=== PATIENT | female | born 1990 | race Hispanic/Latino ===

== ENCOUNTER 2019-11-15 10:16 | Emergency (ER) | payer MEDICAID ==
[2019-11-15 11:09] LABS: Basophils % (Auto) 0.4 % (0.0-1.8); Eosinophils # (Auto) 0.1 K/mm3 (0.0-0.4); Eosinophils % (Auto) 1.2 % (0.0-4.3); Hematocrit 36.5 % (30.3-42.9); Hemoglobin 12.2 gm/dl (10.1-14.3); Lymphocytes # (Auto) 1.4 K/mm3 (1.2-5.4); Lymphocytes % (Auto) 19.6 % (13.4-35.0); Mean Corpuscular HGB Conc 33 % (30-34); Mean Corpuscular Volume 91 fl (79-97); Monocytes # (Auto) 0.4 K/mm3 (0.0-0.8); Monocytes % (Auto) 5.9 % (0.0-7.3); Platelet Count 225 K/mm3 (140-440); Red Blood Count 4.02 M/mm3 (3.65-5.03); Red Cell Distribution Width 13.8 % (13.2-15.2)
[2019-11-15 11:20] LABS: Alanine Aminotransferase 10 units/L (7-56); Albumin 4.5 g/dL (3.9-5); BUN/Creatinine Ratio 14; Blood Urea Nitrogen 10 mg/dL (7-17); Calcium 9.4 mg/dL (8.4-10.2); Hemolysis Index 3
[2019-11-15 12:58] VITALS: BP 116/46
--- NOTE | 2019-11-15 13:12 | Emergency Department Report ---
ED General Adult HPI - General Chief complaint: Medical Clearance Stated complaint: EGTOPIC Time Seen by Provider: 11/15/19 13:06 Source: patient Mode of arrival: Ambulatory Limitations: No Limitations - History of Present Illness Initial comments: 21-year-old female presents emergency department complaining of a 5 weeks history of right right inguinal pain associated with vaginal bleeding currently under the care of Dr. Saint Denise for an ectopic . She has been treating her pain with Dilaudid 2 mg tablets and had a bout of pain that was not responsive to 3 treatments on yesterday. She was seen by her SAMPLE WASHER this morning and was advised to come to the emergency department for a methotrexate IM injection which is to be accompanied with a CBC CMP and hCG quant. She reports her pain is fairly controlled at this point in time she reports no presyncope, no chest pain, no shortness of breath, no no dizziness, no current nausea or vomiting.'s been advised to follow-up with her SAMPLE WASHER on November 19, 2019 - Related Data Home Medications Medication Instructions Recorded Confirmed Last Taken HYDROcodone/ACETAMINOPHEN [Lortab 1 each PO TID PRN 01/18/14 09/05/15 01/18/14 14:00 10-325 mg Tablet] Previous Rx's Medication Instructions Recorded Last Taken Type Ferrous Sulfate [Feosol 325 MG tab] 325 mg PO TID #120 tablet 01/16/14 01/18/14 14:00 Rx Ibuprofen [Motrin 600 MG tab] 600 mg PO Q6HR PRN #30 tablet 01/16/14 01/18/14 14:00 Rx Docusate Sodium [Colace] 100 mg PO BID PRN #60 capsule 09/05/15 Unknown Rx Ibuprofen [Motrin] 800 mg PO Q8HR PRN #90 tablet 09/05/15 Unknown Rx Oxycodone HCl/Acetaminophen 1 each PO Q6HR PRN #45 tablet 09/05/15 Unknown Rx [Percocet 7.5/325 mg] Allergies Allergy/AdvReac Type Severity Reaction Status Date / Time codeine Allergy Hives Verified 11/15/19 10:24 ED Review of Systems ROS: Stated complaint: EGTOPIC Other details as noted in HPI Comment: All other systems reviewed and negative ED Past Medical Hx - Past Medical History Hx Hypertension: No Hx Diabetes: No Hx Deep Vein Thrombosis: No Hx Liver Disease: No Hx Renal Disease: No Hx Sickle Cell Disease: No Hx Seizures: No Hx Asthma: No Hx HIV: No - Surgical History Additional Surgical History: csection - Social History Smoking Status: Current Every Day Smoker Substance Use Type: None - Medications Home Medications: Home Medications Medication Instructions Recorded Confirmed Last Taken Type Ferrous Sulfate [Feosol 325 MG tab] 325 mg PO TID #120 tablet 01/16/14 09/05/15 01/18/14 14:00 Rx Ibuprofen [Motrin 600 MG tab] 600 mg PO Q6HR PRN #30 tablet 01/16/14 09/05/15 01/18/14 14:00 Rx HYDROcodone/ACETAMINOPHEN [Lortab 1 each PO TID PRN 01/18/14 09/05/15 01/18/14 14:00 History 10-325 mg Tablet] Docusate Sodium [Colace] 100 mg PO BID PRN #60 capsule 09/05/15 Unknown Rx Ibuprofen [Motrin] 800 mg PO Q8HR PRN #90 tablet 09/05/15 Unknown Rx Oxycodone HCl/Acetaminophen 1 each PO Q6HR PRN #45 tablet 09/05/15 Unknown Rx [Percocet 7.5/325 mg] ED Physical Exam - General Limitations: No Limitations General appearance: alert, in no apparent distress - Head Head exam: Present: atraumatic, normocephalic - Eye Eye exam: Present: normal appearance - ENT ENT exam: Present: mucous membranes moist - Neck Neck exam: Present: normal inspection - Respiratory Respiratory exam: Present: normal lung sounds bilaterally. Absent: respiratory distress - Cardiovascular Cardiovascular Exam: Present: regular rate, normal rhythm. Absent: systolic murmur, diastolic murmur, rubs, gallop - GI/Abdominal GI/Abdominal exam: Present: soft, tenderness (Tenderness to the right inguinal region.), normal bowel sounds - Extremities Exam Extremities exam: Present: normal inspection - Back Exam Back exam: Present: normal inspection - Neurological Exam Neurological exam: Present: alert, oriented X3 - Psychiatric Psychiatric exam: Present: normal affect, normal mood - Skin Skin exam: Present: warm, dry, intact, normal color. Absent: rash ED Course Vital Signs 11/15/19 11/15/19 11/15/19 10:24 12:57 12:58 Temperature 98.6 F Pulse Rate 68 57 L Respiratory 20 20 18 Rate Blood Pressure 111/63 Blood Pressure 116/46 [Right] O2 Sat by Pulse 99 100 100 Oximetry - Consultations Consultation #1: 11/15/19 13:08 Discussed the case with SAMPLE WASHER Dr. Saint Denise who confirmed the need of a CBC CMP and hCG quant also a methotrexate injection x1 which is to be followed by a discharge with with a follow-up on this coming Tuesday which should be November 19, 2019. Ectopic was confirmed in office the ultrasound. 11/15/19 13:09 ED Medical Decision Making - Lab Data Result diagrams: 11/15/19 10:45 11/15/19 10:45 - Medical Decision Making 29-year-old female reportedly in the process with an ectopic is currently under the care of SAMPLE WASHER Dr. Elda Denise plan is to give her methotrexate shot have her follow-up with with Dr. Saint Denise on November 18 case was discussed with the SAMPLE WASHER and the patient was there is a full understanding of the treatment and the following expectations. Currently there is no emergent condition her vital signs are stable pain is controlled currently she is utiliz ing Dilaudid 2 mg tablets to help control her pain at home does not need a refill or any adjunct medication per patient Critical care attestation.: If time is entered above; I have spent that time in minutes in the direct care of this critically ill patient, excluding procedure time. ED Disposition Clinical Impression: Ectopic , Encounter for methotrexate monitoring Disposition: - TO HOME OR SELFCARE Is pt being admited?: No Does the pt Need Aspirin: No Condition: Stable Instructions: Methotrexate (Injection) Referrals: KEVIN FARIAS MD [Staff Physician] - 11/19/19
== END 2019-11-15 15:02 | disposition home or self-care (01) ==
LOC: ED 10:16
DX: O00.90 Unspecified ectopic pregnancy without intrauterine pregnancy (principal); Z51.81 Encounter for therapeutic drug level monitoring; F17.200 Nicotine dependence, unspecified, uncomplicated; Z79.1 Long term (current) use of non-steroidal anti-inflammatories (NSAID); Z79.899 Other long term (current) drug therapy; Z98.890 Other specified postprocedural states; Z88.8 Allergy status to other drugs, medicaments and biological substances
CPT/HCPCS: 36415; 80053; 84702; 85025; 96372; 99283; J9260

== ENCOUNTER 2020-12-17 16:48 | Outpatient (CLI) | payer MEDICAID ==
[2020-12-17 17:19] VITALS: BP 114/67
--- NOTE | 2020-12-17 18:37 | Ultrasound Report ---
Biophysical profile Ultrasound HISTORY: well being. TECHNIQUE: Grayscale and color imaging performed. COMPARISON: No recent comparison exam FINDINGS: The fetus received a score of 2 out of 2 for breathing, movement, posture/tone, and OSWALDO. To lisa score was 8 out of 8. Fetus is cephalic in presentation with heart rate of 123 bpm. IMPRESSION: Normal BPP. Signer Name: Abdi Riley MD Signed: 12/17/2020 6:33 PM Workstation Name: [id number]
== END 2020-12-17 18:38 | disposition home or self-care (01) ==
LOC: TRG 16:48 → APU 16:51 → TRG 18:38
PROVIDERS: ATTEND Obstetrics & Gynecology
DX: Z34.93 Encounter for supervision of normal pregnancy, unspecified, third trimester (principal); Z3A.31 31 weeks gestation of pregnancy
CPT/HCPCS: 59025; 76819

== ENCOUNTER 2021-01-08 18:10 | Outpatient (CLI) | payer MEDICAID ==
[2021-01-08 18:29] VITALS: BP 116/73
[2021-01-08] MEDS ORDERED: LACTATED RINGERS 1,000 ML IV ONE (18:45)
[2021-01-08 19:07] LABS: Bilirubin,Urine NEG (Negative); Blood,Urine NEG (Negative); Color,Urine Yellow (Yellow); Mucus,Urine FEW /HPF; Protein,Urine <15 mg/dL mg/dL (Negative); Urobilinogen,Urine < 2.0 mg/dL (<2.0)
== END 2021-01-08 19:48 | disposition home or self-care (01) ==
LOC: TRG 18:10 → APU 18:13 → TRG 19:48
PROVIDERS: ATTEND Obstetrics & Gynecology
DX: Z34.93 Encounter for supervision of normal pregnancy, unspecified, third trimester (principal); Z3A.35 35 weeks gestation of pregnancy
CPT/HCPCS: 36415; 59025; 81001; 84112

== ENCOUNTER 2021-02-06 05:43 | Inpatient (IN) | payer MEDICAID ==
--- NOTE | 2021-02-05 12:43 | History and Physical Report ---
History of Present Illness Date of examination: 02/04/21 Chief complaint: scheduled section History of present illness: Pt is a 31 year old female FLORENCIA 02/12/21 at 39w1d with a history of two prior sections who presents for repeat section. She reports rare contractions, but denies vaginal bleeding and leakage of fluid. She has had care at [facility] since 11 wks complicated by trichomonas treated with negative test of cure on 09/30/20, anemia, limited anatomy survey with normal follow up scan, and two prior sections. She is GBS positive. Past History Past Medical History: GERD Past Surgical History: section (2013, 2015), D&C [employer] TECH[employer]ICIAN History: trichomonas (treated with negative test of cure ) Family/Genetic History: diabetes, hypertension, cancer Social history: no significant social history - Obstetrical History Expected Date of Delivery: 02/12/21 Actual Gestation: 39 Week(s) 0 Day(s) : 5 Para: 2 Hx # Term Pregnancies: 2 Number of Pregnancies: 0 Spontaneous Abortions: 2 Induced : 0 Number of Living Children: 2 Medications and Allergies Allergies Allergy/AdvReac Type Severity Reaction Status Date / Time codeine Allergy Hives Verified 11/15/19 10:24 Home Medications Medication Instructions Recorded Confirmed Last Taken Type Vit-Fe Fumar-FA [ 1 tab PO QDAY 01/08/21 01/08/21 01/07/21 History Vitamin] Active Meds: Active Medications Citric Acid/Sodium Citrate (Bicitra Oral Liqd 30ml) 30 ml PO ONCE ONE Stop: 02/06/21 06:01 Famotidine (Famotidine 20 Mg/2 Ml Inj) 20 mg IV ONCE ONE Stop: 02/06/21 06:01 Lactated Ringer's (Lactated Ringers) 1,000 mls @ 2,250 mls/hr IV PREOP KAYCEE Stop: 02/07/21 05:27 Oxytocin/Sodium Chloride (Pitocin/Ns 30 Unit/500ml) 30 units in 500 mls @ 0 mls/hr IV TITR KAYCEE; Protocol Cefazolin Sodium (Ancef/Sterile Water 2 Gm/20 Ml) 2 gm in 20 mls @ 80 mls/hr IV PREOP NR; Protocol Metoclopramide HCl (Metoclopramide 10 Mg/2 Ml Inj) 10 mg IV ONCE ONE Stop: 02/06/21 06:01 Review of Systems All systems: negative - Physical Exam Breasts: Positive: deferred Abdomen: Positive: soft (obese, gravid ) Uterus: Positive: enlarged (gravid ) Extremities: Positive: normal - Obstetrical FHR: auscultation normal Uterine Contraction Monitor Mode: External Uterine Contraction Pattern: Irregular Uterine Tone Measurement Phase: Resting Results All other labs normal. Assessment and Plan A: IUP at 39w1d Previous section x 2 Obesity GERD Trichomonas treated with negative test of cure on 09/30/20 Anemia GBS positive status P: Proceed with repeat section and other indicated procedures.
[~2021-02-06 05:43] MED LIST: LACTATED RINGERS 1,000 ML IV SCH; OXYTOCIN DRIP 30 UNITS/500 ML BAG IV SCH
[2021-02-06] MEDS ORDERED: ceFAZolin/Water 2 GM/20 ML 2 GM/20 ML SYRINGE IV NR (06:00)
[2021-02-06] MEDS ORDERED: ceFAZolin/Water 2 GM/20 ML 0 GM/0 ML SYRINGE IV ONE (06:47)
[2021-02-06 06:58] LABS: Basophils # (Auto) 0.1 K/mm3 (0.0-0.1); Basophils % (Auto) 0.6 % (0.0-1.8); Eosinophils # (Auto) 0.1 K/mm3 (0.0-0.4); Eosinophils % (Auto) 1.6 % (0.0-4.3); Hematocrit 33.3 % (30.3-42.9); Hemoglobin 11.8 gm/dl (10.1-14.3); Lymphocytes # (Auto) 1.8 K/mm3 (1.2-5.4); Lymphocytes % (Auto) 20.4 % (13.4-35.0); Mean Corpuscular HGB Conc 36 % (30-34); Mean Corpuscular Volume 95 fl (79-97); Monocytes # (Auto) 0.6 K/mm3 (0.0-0.8); Monocytes % (Auto) 6.8 % (0.0-7.3); Platelet Count 179 K/mm3 (140-440); Red Blood Count 3.52 M/mm3 (3.65-5.03); Red Cell Distribution Width 12.8 % (13.2-15.2)
[2021-02-06] MEDS ORDERED: METOCLOPRAMIDE 10 MG/2 ML INJ IV ONE (07:00)
[2021-02-06] MEDS ORDERED: FAMOTIDINE 20 MG/2 ML INJ IV ONE (07:00)
[2021-02-06] MEDS ORDERED: BICITRA ORAL LIQD 30ML PO ONE (07:00)
--- NOTE | 2021-02-06 07:10 | Anesthesia Day of Surgery ---
Anesthesia Day of Surgery - Day of Surgery Patient Examined: Yes Patient H&P Reviewed: Yes Patient is NPO: Yes Beta Blockers: No Cardiac Clearance: No Pulmonary Clearance: No Christopher's Test: N/A
--- NOTE | 2021-02-06 07:11 | Anesthesia Consultation ---
Anesthesia Consult and Med Hx Date of service: 02/06/21 - Airway Anesthetic Teeth Evaluation: Good ROM Head & Neck: Adequate Mental/Hyoid Distance: Adequate Mallampati Class: Class II Intubation Access Assessment: Probably Good - Pulmonary Exam CTA: Yes - Cardiac Exam Cardiac Exam: RRR - Pre-Operative Health Status ASA Pre-Surgery Classification: ASA2 Proposed Anesthetic Plan: Spinal - Pulmonary Hx Smoking: No Hx Asthma: No Hx Respiratory Symptoms: No SOB: No COPD: No Home Oxygen Therapy: No Hx Pneumonia: No Hx Sleep Apnea: No - Cardiovascular System Hx Hypertension: No Hx Coronary Artery Disease: No Hx Heart Attack/AMI: No Hx Angina: No Hx Percutaneous Transluminal Coronary Angioplasty (PTCA): No Hx Cardia Arrhythmia: No Hx Pacemaker: No Hx Internal Defibrillator: No Hx Valvular Heart Disease: No Hx Heart Murmur: No Hx Peripheral Vascular Disease: No - Central Nervous System Hx Neuromuscular Disorder: No Hx Seizures: No CVA: No Hx Back Pain: Yes Hx Psychiatric Problems: No - Gastrointestinal Hx Ulcer: No Hx Gastroesophageal Reflux Disease: No - Endocrine Hx Renal Disease: No Hx End Stage Renal Disease: No Hx Cirrhosis: No Hx Liver Disease: No Hx Insulin Dependent Diabetes: No Hx Non-Insulin Dependent Diabetes: No Hx Thyroid Disease: No Hx Hypothyroidism: No Hx Hyperthyroidism: No - Hematic Hx Anemia: No Hx Sickle Cell Disease: No - Other Systems Hx Alcohol Use: No Hx Substance Use: No Hx Cancer: No Hx Obesity: Yes
[2021-02-06] MEDS ORDERED: ONDANSETRON 4 MG/2 ML INJ ONE ×2 (07:25)
[2021-02-06] MEDS ORDERED: ONDANSETRON 4 MG/2 ML INJ IV PRN (07:30)
[2021-02-06] MEDS ORDERED: HYDROmorphone 1 MG/1 ML INJ IV PRN (07:30)
[2021-02-06] MEDS ORDERED: NALOXONE 0.4 MG/1 ML INJ IV PRN ×2 (07:30→14:31)
[2021-02-06] MEDS ORDERED: miSOPROStol 200 MCG TAB PR ONE (08:00)
[2021-02-06] MEDS ORDERED: METHYLERGONOVINE MALEATE 0.2 MG/ML VIAL IM ONE ×2 (08:03→20:11)
[2021-02-06] MEDS ORDERED: miSOPROStol 200 MCG TAB ONE (08:03)
[2021-02-06] MEDS ORDERED: PHENYLEPHRINE 10 MG/1 ML INJ SDV ONE (08:18)
[2021-02-06] MEDS ORDERED: ceFAZolin/STERILE WATER 2 GM/20 ML SYRINGE IV ONE (08:32)
[2021-02-06] MEDS ORDERED: WATER FOR IRRIG STERILE 1,500 ML BOTTLE IR ONE (08:40)
[2021-02-06] MEDS ORDERED: SODIUM CHLORIDE 0.9% IRR 1,500 ML BOTTLE IR ONE (08:40)
[2021-02-06] MEDS ORDERED: OXYTOCIN 10 UNIT/1 ML INJ ONE (09:04)
[2021-02-06] MEDS ORDERED: SODIUM CHLORIDE 0.9% 500 ML 500 ML ONE (09:05)
[2021-02-06] MEDS ORDERED: KETOROLAC 30 MG/1 ML INJ ONE (09:23)
[2021-02-06] MEDS ORDERED: dexAMETHasone 20 MG/5 ML VIAL ONE (09:25)
[2021-02-06] MEDS ORDERED: BUPIVACAINE/PF (0.25%) 2.5 MG/ML 30 ML VIAL INFILTRATI ONE ×2 (09:26)
--- NOTE | 2021-02-06 10:01 | Procedure Note ---
OB Delivery Note - Delivery Date of Delivery: 02/06/21 Surgeon: DAVID NICKERSON Estimated blood loss: other (305 mL) - Section Preop diagnosis: repeat Postop diagnosis: same section procedure: section, repeat low transverse Disposition: PACU Narrative: Please see operative note - A at 1 minute: 8 at 5 minutes: 9 Infant Gender: Male (3777g (8lb 5oz) @ 0901 am)
--- NOTE | 2021-02-06 10:07 | Operative Report ---
Operative Report Operative Report: Date of procedure: February 06, 2021 Preoperative diagnosis: 1) IUP at 39w1d 2) Previous x 2 3) Obesity Postoperative diagnosis: Same Procedure: Repeat low transverse section Surgeon: Madelyn Baxter M.D. Anesthesia: Regional Findings: 1) Viable male , Apgars 8 and 9, weight 3777 g, (8 lb 5 oz) in cephalic presentation. 2) Normal-appearing uterus ovaries and tubes Estimated blood loss: 305 mL by QBL IV fluids: 1000 mL Urine output: 200 mL, clear at the end of the procedure Drains: Zhou to gravity Specimens: None Complications:None. Counts correct x 3 Disposition: Stable to PACU Indication for procedure: Pt is a 31 year old at 39w1d with a h/o two prior sections presents for repeat section. Operation in detail: After the risks, benefits, alternatives and complications were explained to the patient she gave informed consent for the procedure. She was subsequently taken to the operating room where regional anesthesia was noted to be adequate. She was placed in the dorsal supine position with leftward tilt and prepped and draped in a normal sterile fashion. heart tones were noted prior to incision. A timeout was performed. A Pfannenstiel skin incision was made with the knife and carried down to the layer of the fascia with the Bovie. The fascia was incised in the midline and the fascial incision was extended bilaterally with the Bovie. The fascial incision was then stretched. The rectus muscles were then in the midline and partially transected for adequate visualization. The peritoneum was then entered bluntly. The peritoneal incision was extended with good visualization of the bladder. The peritoneal incision was then stretched. An Jose retractor was placed. The bladder blade was then placed. The vesicouterine peritoneum was grasped with smooth pick ups and incised with Metzenbaum scissors. A bladder flap was then created digitally and the bladder blade was replaced. A transverse incision was made in the lower uterine segment with a knife and extended bilaterally with the bandage scissors. Amniotomy was performed with egress of clear fluid. head delivered with ease, followed by shoulders and body. bulb suctioned at delivery. Cord clamped and cut. handed to NICU staff in attendance. Cord blood was collected. The placenta was then delivered manually. The uterus was then exteriorized and cleared of all clots and debris. The hysterotomy was then reapproximated with 0 Monocryl in a running locked fashion. A second layer of the same suture was used in imbricating fashion. The hysterotomy was inspected and hemostasis was noted. The gutters were irrigated and cleared of all clots and debris. The hysterotomy was again inspected and noted to be hemostatic. The uterus was placed back into the peritoneal cavity. Surgicel was placed over the hysterotomy. The Jose retractor was removed. The peritoneum was reapproximated with 0 Monocryl in a running fashion incorporating the rectus muscles. Surgicel was placed over the rectus muscles. The fascia was reapproximated with 0 Vicryl in a running fashion. The subcutaneous tissue was reapproximated with 3-0 Vicryl in a running fashion. The skin was reapproximated with 3-0 Monocryl in a subcuticular fashion. The incision was then covered with steri strips and a pressure dressing. The procedure was then ended. The patient tolerated the procedure well and was taken to the PACU in stable condition. All instrument, lap, and needle counts were correct 3.
[2021-02-06] MEDS ORDERED: WITCH HAZEL/ GLYCERIN PAD TP PRN (14:31)
[2021-02-06] MEDS ORDERED: OXYTOCIN DRIP 30 UNITS/500 ML BAG IV SCH (14:31)
[2021-02-06] MEDS ORDERED: SIMETHICONE 80 MG CHEW TAB PO PRN (14:31)
[2021-02-06] MEDS ORDERED: MORPHINE 2 MG/1 ML INJ IV PRN (14:31)
[2021-02-06] MEDS ORDERED: LANOLIN/ZINC/DIMETHICONE (LANSINOH) 7 GM TP PRN (14:31)
[2021-02-06] MEDS ORDERED: D5W/LACTATED RINGERS 1,000 ML IV SCH (14:31)
[2021-02-06] MEDS ORDERED: MAGNESIUM HYDROXIDE (MOM) ORAL LIQD UDC PO PRN (14:31)
[2021-02-06] MEDS: KETOROLAC 30 MG/1 ML INJ IV SCH ×2 (15:01→21:31)
[2021-02-06] MEDS: ceFAZolin/NS 1 GM/50 ML 1 GM/50 ML BAG IV SCH ×2 (15:03→22:05)
--- NOTE | 2021-02-06 15:27 | Progress Note ---
Spinal Anesthesia Block - Spinal Anesthesia Block Start Time: 07:50 Stop Time: 08:11 Performed by:: RSOEANNE MONTERO Procedure: Patient IDed, H&P reviewed, all questions and concerns were answered, and consent was signed. Timeout was performed at bedside. Patient in sitting position. Sterile prep and drape was performed. [3] ml of 1% lidocaine skin wheal at L[3]- L [4]. Needle introducer advanced. 25 gauge spinal needle advanced. Clear, free flowing CSF. negative blood, negative paresthesia. Spinal dose given. All needles removed. Patient tolerated procedure.
--- NOTE | 2021-02-06 15:29 | Progress Note ---
Regional Anesthesia Block - Regional Anesthesia Block Start Time: 10:15 Stop Time: 10:18 Performed By:: ROSEANNE MONTERO Procedure: Patient consented for TAP block for post surgical pain management. Patient identified, monitors placed, and time out performed. TAP identified bilaterally via ultrasound. Skin prepped bilaterally with [chlorhexidine] and [22g stimuplex] needle advanced to the TAP. [Marcaine 0.25% 30ml] injected under ultrasound guidance on the [left] side. [Marcaine 0.20% 35ml] injected under ultrasound guidance on the [right] side. Negative aspiration every 5mL, No change in heart rate or rhythm. Patient tolerated the procedure well. No apparent complications seen.
--- NOTE | 2021-02-06 20:34 | Post Anesthesia Evaluation ---
- Post Anesthesia Evaluation Patient Participated: Yes Airway Patent: Yes Stable Respiratory Function: Yes Nausea/Vomiting: No Temp > 96.8F: Yes Pain Manageable: Yes Adequeate Hydration: Yes Anesthesia Complications: No Block Receding Appropriately: Yes Patient on Ventilator: No
[2021-02-06] MEDS: MORPHINE 4 MG/1 ML INJ IV PRN (23:47)
[2021-02-07 02:57] LABS: Hematocrit 33.4 % (30.3-42.9); Hemoglobin 11.4 gm/dl (10.1-14.3)
[2021-02-07] MEDS ORDERED: MEASLES, MUMPS & RUBELLA 12,500 UNIT/0.5 ML VACCINE SUB-Q ONE (06:00)
[2021-02-07] MEDS ORDERED: TETANUS,DIPH,PERTUSS(ACELL) VACCINE 0.5 ML SYRINGE IM ONE (06:00)
[2021-02-07] MEDS: MORPHINE 4 MG/1 ML INJ IV PRN (09:51)
[2021-02-07] MEDS: KETOROLAC 30 MG/1 ML INJ IV SCH (09:59)
[2021-02-07] MEDS: oxyCODONE /ACETAMINOPHEN 5-325MG TAB PO PRN ×2 (13:22→17:51)
--- NOTE | 2021-02-07 14:19 | Progress Note ---
Assessment and Plan A: POD#1 s/p repeat section at term P: Routine post op advances Subjective - Subjective Date of service: 02/07/21 Principal diagnosis: s/p repeat section, obesity Interval history: No overnight events. Patient reports: appetite normal, voiding normally, pain well controlled, ambulating normally : doing well Objective - Vital Signs Latest vital signs: Vital Signs Temp Pulse Resp BP BP Pulse Ox Pulse Ox 02/07/21 13:08 97.3 F L 72 16 111/78 100 02/07/21 08:25 98.1 F 67 18 107/68 98 02/07/21 08:00 98 02/07/21 04:15 98.6 F 68 20 122/68 100 02/06/21 23:47 14 02/06/21 23:16 98.2 F 72 20 123/77 98 02/06/21 21:31 12 02/06/21 20:20 98.2 F 74 20 118/62 100 02/06/21 20:15 98 02/06/21 16:21 97.5 F L 66 18 98 Intake and Output 02/06/21 02/07/21 02/07/21 22:59 06:59 14:59 Intake Total 50 240 Output Total 1900 1100 Balance -1850 -860 Intake: IV 50 ANCEF/NS 1 GM/50 ML 1 gm 50 In 50 ml @ 100 mls/hr IV Q8H [facility] Rx#:[id number] Oral 240 Output: Urine 1900 1100 Indwelling Catheter 1900 Void 1100 Other: Total, Intake Amount 240 Total, Output Amount 400 500 # Voids Void 2 - Exam Breasts: Present: deferred Abdomen: Present: soft (obese ), distention (mild ) Uterus: Present: fundal height at umbilicus Extremities: Present: edema (trace ) Incision: Present: dressed
[2021-02-07] MEDS: IBUPROFEN 800 MG TAB PO PRN (15:32)
[2021-02-08] MEDS: oxyCODONE /ACETAMINOPHEN 5-325MG TAB PO PRN ×2 (02:52→13:29)
[2021-02-08] MEDS: LACTULOSE 20 GM/30 ML ORAL LIQD PO SCH ×2 (06:16→16:19)
[2021-02-08] MEDS: IBUPROFEN 800 MG TAB PO PRN ×2 (09:36→16:19)
--- NOTE | 2021-02-08 14:55 | Progress Note ---
Assessment and Plan A: POD#2 s/p repeat section at term P: Routine post op advances Discharge today with follow up in 2 wks for incision check Subjective - Subjective Date of service: 02/08/21 Principal diagnosis: s/p repeat section, obesity Interval history: No overnight events. Pt desires to go home today. Patient reports: appetite normal, voiding normally, pain well controlled, flatus , ambulating normally, no bowel movement : doing well Objective - Vital Signs Latest vital signs: Vital Signs Temp Pulse Resp BP BP Pulse Ox Pulse Ox 02/08/21 08:43 97.7 F 71 18 105/78 98 02/08/21 06:14 97 02/08/21 04:12 98 02/08/21 01:35 98 02/08/21 00:17 98 02/08/21 00:15 98.6 F 58 L 20 118/72 100 02/07/21 21:30 97 02/07/21 20:10 97 02/07/21 17:28 97.3 F L 79 16 90/43 97 Intake and Output 02/07/21 02/08/21 02/08/21 22:59 06:59 14:59 Intake Total 240 240 Balance 240 240 Intake: Oral 240 240 Other: Total, Intake Amount 240 240 # Voids Void 1 1 1 - Exam Breasts: Present: deferred Abdomen: Present: soft (obese ) Uterus: Present: fundal height at umbilicus Extremities: Present: edema (+1) Incision: Present: intact (with steristrips )
--- NOTE | 2021-02-08 15:55 | Discharge Summary ---
Providers - Providers Date of Admission: 02/06/21 05:43 Date of discharge: 02/08/21 Attending physician: KEVIN FARIAS 02/06/21 14:31 Consult to Special Events Manager [CONS] Routine Reason For Exam: Primary care physician: DAVID NICKERSON Hospitalization Reason for admission: section Delivery: Procedure: section, repeat low transverse Procedure details: Please see operative report Incision: normal, intact Other procedures: none complications: none Discharge diagnosis: IUP at term delivered baby: male Hospital course: Pt was admitted for repeat section and went on to have a repeat section which she tolerated well. Her postoperative course was uncomplicated and she met to discharge criteria on POD#2. She will follow up in 2 wks for an incision check. Condition at discharge: Stable Disposition: 01 HOME / SELF CARE / HOMELESS - Discharge Diagnoses (1) S/P section Status: Acute (2) Obesity (BMI 35.0-39.9 without comorbidity) Status: Acute (3) Previous delivery affecting Status: Acute Plan - Discharge Medications Prescriptions: Ibuprofen [Motrin] 800 mg PO Q8HR PRN #30 tablet PRN Reason: Pain, Moderate (4-6) oxyCODONE /ACETAMINOPHEN [Percocet 5/325] 1 tab PO Q6HR PRN #30 tablet PRN Reason: Pain - Provider Discharge Summary Activity: routine, no sex for 6 weeks, no heavy lifting 4 weeks, no strenuous exercise Diet: routine Instructions: routine Additional instructions: [] Smoking cessation referral if applicable(refer to patient education folder for contact #) [] Refer to [facility] Booklet Call your doctor immediately for: * Fever > 100.5 * Heavy vaginal bleeding ( >1 pad per hour) * Severe persistent headache * Shortness of breath * Reddened, hot, painful area to leg or breast * Drainage or odor from incision. * Keep incision clean and dry at all times and follow doctor's instructions regarding bathing/showering - Follow up plan Follow up: DAVID NICKERSON MD [Primary Care Provider] - 14 Days (Please call to schedule an appt)
[2021-02-08 18:31] VITALS: BP 110/73
== END 2021-02-08 19:15 | disposition home or self-care (01) | DRG 766 ==
LOC: APU 05:43 → OB 11:45
PROVIDERS: ADMIT Obstetrics & Gynecology; ATTEND Obstetrics & Gynecology
PROC: 10D00Z1 Extraction of Products of Conception, Low, Open Approach (ICD-10-PCS; principal; 2021-02-06)
PROC: 3E0T3BZ Introduction of Anesthetic Agent into Peripheral Nerves and Plexi, Percutaneous Approach (ICD-10-PCS; 2021-02-06)
PROC: 3E0234Z Introduction of Serum, Toxoid and Vaccine into Muscle, Percutaneous Approach (ICD-10-PCS; 2021-02-07)
DX: O34.211 Maternal care for low transverse scar from previous cesarean delivery (principal); Z37.0 Single live birth; O99.214 Obesity complicating childbirth; O99.62 Diseases of the digestive system complicating childbirth; O99.02 Anemia complicating childbirth; D64.9 Anemia, unspecified; O99.824 Streptococcus B carrier state complicating childbirth; Z3A.39 39 weeks gestation of pregnancy; K21.9 Gastro-esophageal reflux disease without esophagitis; Z20.822 Contact with and (suspected) exposure to COVID-19; Z23 Encounter for immunization
CPT/HCPCS: 36415; 85014; 85018; 85025; 86850; 86900; 86901; 88307; G0378; A6250; C1765; J0690; J1100; J1885; J2210; J2270; J2370; J2405; J2590; J2765; J3490; J7040; J7120; U0003

== ENCOUNTER 2022-02-25 09:25 | Inpatient (IN) | payer MEDICAID ==
[2022-02-25] MEDS ORDERED: FAMOTIDINE 20 MG/2 ML INJ IV ONE (09:41)
[2022-02-25] MEDS ORDERED: METOCLOPRAMIDE 10 MG/2 ML INJ IV ONE (09:41)
[2022-02-25] MEDS ORDERED: BICITRA ORAL LIQD 30ML PO ONE (09:41)
[2022-02-25] MEDS ORDERED: LACTATED RINGERS 1,000 ML IV SCH (09:45)
--- NOTE | 2022-02-25 09:47 | History and Physical Report ---
History of Present Illness Date of examination: 02/24/02 Date of admission: 02/25/22 09:25 Chief complaint: scheduled section History of present illness: Pt is a 32 year old female FLORENCIA 03/03/22 at 39w1d who presents for scheduled section secondary to previous x 3. She reports irregular contractions, and denies vaginal bleeding or leakage of fluid. She has had care at [facility] since 16 wks complicated by GERD, three prior sections, choroid plexus cyst, and undesired fertility. She is GBS positive. Past History Past Medical History: GERD Past Surgical History: section (x 3), D&C Family/Genetic History: diabetes, hypertension, cancer Social history: no significant social history - Obstetrical History Expected Date of Delivery: 03/03/22 Actual Gestation: 39 Week(s) 1 Day(s) : 6 Para: 3 Hx # Term Pregnancies: 3 Number of Pregnancies: 0 Spontaneous Abortions: 2 Induced : 0 Number of Living Children: 3 Medications and Allergies Allergies Allergy/AdvReac Type Severity Reaction Status Date / Time codeine Allergy Hives Verified 11/15/19 10:24 Home Medications Medication Instructions Recorded Confirmed Last Taken Type Vit-Fe Fumar-FA [ 1 tab PO QDAY 01/08/21 01/08/21 01/07/21 History Vitamin] Ibuprofen [Motrin] 800 mg PO Q8HR PRN #30 tablet 02/07/21 Unknown Rx oxyCODONE /ACETAMINOPHEN [Percocet 1 tab PO Q6HR PRN #30 tablet 02/07/21 Unknown Rx 5/325] Review of Systems All systems: negative - Physical Exam Breasts: Positive: deferred Abdomen: Positive: soft (gravid ) Uterus: Positive: enlarged (gravid ) Extremities: Positive: normal - Obstetrical Uterine Contraction Monitor Mode: External Uterine Contraction Pattern: Irregular Results All other labs normal. Assessment and Plan A: IUP at 39w1d Previous x 3 GERD Choroid plexus cyst GBS positive status Undesired fertility P: Proceed with repeat section, bilateral tubal ligation and other indicated procedures
[2022-02-25] MEDS ORDERED: OXYTOCIN DRIP 30 UNITS/500 ML BAG IV SCH ×2 (10:00→17:03)
[2022-02-25] MEDS ORDERED: ceFAZolin/Water 2 GM/20 ML 2 GM/20 ML SYRINGE IV NR (10:00)
[2022-02-25 12:18] LABS: Basophils % (Auto) 0.5 % (0.0-1.8); Eosinophils # (Auto) 0.1 K/mm3 (0.0-0.4); Hematocrit 32.9 % (30.3-42.9); Hemoglobin 11.3 gm/dl (10.1-14.3); Lymphocytes # (Auto) 1.6 K/mm3 (1.2-5.4); Lymphocytes % (Auto) 19.5 % (13.4-35.0); Mean Corpuscular HGB Conc 34 % (30-34); Mean Corpuscular Volume 95 fl (79-97); Monocytes # (Auto) 0.4 K/mm3 (0.0-0.8); Platelet Count 155 K/mm3 (140-440); Red Blood Count 3.47 M/mm3 (3.65-5.03); Red Cell Distribution Width 13.2 % (13.2-15.2)
--- NOTE | 2022-02-25 14:15 | Procedure Note ---
OB Delivery Note - Delivery Date of Delivery: 02/25/22 Surgeon: DAVID NICKERSON Estimated blood loss: 1000cc - Section Preop diagnosis: repeat , desires sterilization Postop diagnosis: same section procedure: section, repeat low transverse, bilateral tubal ligation Disposition: PACU Narrative: Please see operative report - A at 1 minute: 8 at 5 minutes: 9 Infant Gender: Female (3370g (7lb 7oz) @ 1310 pm)
--- NOTE | 2022-02-25 14:22 | Operative Report ---
Operative Report Operative Report: Date of procedure: February 25, 2022 Preoperative diagnosis: 1)IUP at 39w1d 2) Previous x 3 3) Obesity 4) Undesired Fertility Postoperative diagnosis: Same Procedure: 1) Repeat low transverse section 2) Bilateral tubal ligation via modified [place] method Surgeon: Madelyn Baxter M.D. Anesthesia: Regional Findings: 1) Viable female , Apgars 8 and 9, weight 3370, (7lb 7oz) in cephalic presentation. Thick meconium. 2) Normal appearing uterus, ovaries and tubes 3) Left peritoneal defect repaired with 2-0 chromic in a running fashion Estimated blood loss: 1000 mL Urine output: 100 mL, clear at the end of the procedure Drains: Zhou to gravity Specimens: Tubal segments to pathology Complications: Counts correct x 3 Disposition: Stable to PACU Indication for procedure: Pt is a 32 year old at 39w1d with three prior sections and undesired fertility presents for scheduled section and tubal ligation. Operation in Detail: After the risks, benefits, alternatives and complications were explained to the patient she gave informed consent for the procedure. She was subsequently taken to the operating room where regional anesthesia was noted to be adequate. SCDs were noted to be in place and functioning. She was then placed in the dorsal supine position with leftward tilt and prepped and draped in a normal sterile fashion. heart tones were noted prior to incision. A timeout was performed. A Pfannenstiel skin incision was made with the knife and carried down to the layer of the fascia with the Bovie. The fascia was incised in the midline and the fascial incision was extended bilaterally with the Bovie. The fascial incision was then stretched. The rectus muscles were then in the midline and partially transected for adequate visualization. The peritoneum was then entered sharply between two Francisca clamps. The peritoneal incision was extended with good visualization of the bladder. The peritoneal incision was then stretched. An Jose retractor was placed. The bladder blade was placed. The vesicouterine peritoneum was grasped with smooth pick ups and incised with Metzenbaum scissors. A transverse incision was made with a knife in the lower uterine segment. The hysterotomy was stretched. The head was delivered without difficulty followed by delivery of the shoulders and body. was bulb suctioned at delivery. The cord was clamped and cut and the was handed to NICU staff in attendance. Cord blood was collected. The placenta was then delivered manually. The uterus was exteriorized and cleared of all clots and debris. The hysterotomy was then reapproximated with 0 Monocryl in a running locked fashion. A defect in the peritoneum on the left side of the uterus was noted, and reapproximated with two figure of eights of 2-0 chromic. The hysterotomy was inspected and hemos tasis was noted. Attention was then turned to the tubal ligation. The left tube was identified, grasped with a kam and followed out to the fimbriae. The tube was suture ligated via a modified [place] merhod using 0 plain suture. The intervening tubal segment was sent to pathology. The right tube was then identified, followed out to the fimbriae and suture ligated via a modified [place] method using 0 plain suture. Hemostasis was noted. Surgicel was placed over the tubal ostia bilaterally. The gutters were irrigated and cleared of all clots and debris. The hysterotomy was again inspected and noted to be hemostatic. Surgicel was placed over the hysterotomy. The uterus was returned to the peritoneal cavity. The Jose retractor was removed. The peritoneum was reapproximated with 0 Monocryl in a running fashion incorporating the rectus muscles. Surgicel was placed over the rectus muscles. The fascia was reapproximated with 0-Vicryl in a running fashion. The subcutaneous tissue was reapproximated with 3-0 Vicryl in a running fashion. The skin was reapproximated with 3-0 Monocryl in a subcuticular fashion. The incision was then covered with a pressure dressing. The procedure was then ended. The patient tolerated the procedure well and was taken to the PACU in stable condition. All instrument, lap, and needle counts were correct 3.
[2022-02-25] MEDS ORDERED: SIMETHICONE 80 MG CHEW TAB PO PRN (17:03)
[2022-02-25] MEDS ORDERED: WITCH HAZEL/ GLYCERIN PAD TP PRN (17:03)
[2022-02-25] MEDS ORDERED: ONDANSETRON 4 MG/2 ML INJ IV PRN (17:03)
[2022-02-25] MEDS ORDERED: ACETAMINOPHEN 325 MG TAB PO PRN (17:03)
[2022-02-25] MEDS ORDERED: LANOLIN/ZINC/DIMETHICONE (LANSINOH) 7 GM TP PRN (17:03)
[2022-02-25] MEDS ORDERED: NALOXONE 0.4 MG/1 ML INJ IV PRN (17:03)
[2022-02-25] MEDS ORDERED: HYDROmorphone 0.5 MG/0.5 ML INJ IV PRN (17:03)
[2022-02-25] MEDS: KETOROLAC 30 MG/1 ML INJ IV SCH (20:07)
[2022-02-25] MEDS: ceFAZolin/NS 1 GM/50 ML 1 GM/50 ML BAG IV SCH (20:10)
[2022-02-25] MEDS ORDERED: LACTATED RINGERS 1,000 ML ONE (20:11)
[2022-02-25] MEDS: HYDROmorphone 0.5 MG/0.5 ML INJ IV PRN (21:11)
[2022-02-26] MEDS: HYDROmorphone 0.5 MG/0.5 ML INJ IV PRN (00:50)
[2022-02-26] MEDS: KETOROLAC 30 MG/1 ML INJ IV SCH ×2 (02:51→11:59)
[2022-02-26] MEDS: ceFAZolin/NS 1 GM/50 ML 1 GM/50 ML BAG IV SCH (02:53)
[2022-02-26 04:17] LABS: Hematocrit 26.4 % (30.3-42.9); Hemoglobin 9.3 gm/dl (10.1-14.3)
[2022-02-26] MEDS: oxyCODONE /ACETAMINOPHEN 5-325MG TAB PO PRN ×4 (05:24→18:15)
[2022-02-26] MEDS ORDERED: TETANUS,DIPH,PERTUSS(ACELL) VACCINE 0.5 ML SYRINGE IM ONE (06:00)
[2022-02-26] MEDS: FERROUS SULFATE 325 MG TAB PO SCH (09:29)
--- NOTE | 2022-02-26 13:45 | Progress Note ---
Assessment and Plan A: POD#1 s/p repeat section with bilateral tubal ligation Anemia, asymptomatic Obesity P: Routine postop care Subjective - Subjective Date of service: 02/26/22 Principal diagnosis: s/p repeat at term Interval history: Pt without unusual complaints today. Patient reports: appetite normal, voiding normally, pain well controlled, flatus, ambulating normally, no bowel movement [place]: doing well Objective - Vital Signs Latest vital signs: Vital Signs Temp Pulse Resp BP BP Pulse Ox Pulse Ox 02/26/22 11:37 98.2 F 72 18 111/71 96 02/26/22 08:15 98 02/26/22 08:10 97.9 F 65 16 102/74 98 02/26/22 04:13 98.0 F 60 20 101/66 97 02/26/22 00:44 98.3 F 71 20 104/68 96 02/25/22 20:00 96 02/25/22 19:58 75 20 112/65 100 02/25/22 16:31 78 16 107/63 100 02/25/22 16:15 100 Intake and Output 02/25/22 02/26/22 02/26/22 22:59 06:59 14:59 Intake Total 295 120 360 Output Total 600 1000 Balance -305 -880 360 Intake: IV 175 ANCEF/NS 1 GM/50 ML 1 gm 50 In 50 ml @ 100 mls/hr IV Q8H [facility] Rx#:[id number] Left Hand 125 Oral 120 120 360 Output: Urine 600 1000 Indwelling Catheter 600 1000 Other: Total, Intake Amount 120 120 360 Total, Output Amount 600 1000 # Voids Void 1 1 - Exam Breasts: Present: deferred Abdomen: Present: soft (obese ) Extremities: Present: edema (trace) Incision: Present: dressed - Labs Labs: Abnormal lab results 02/26/22 Range/Units 03:53 Hgb 9.3 L (10.1-14.3) gm/dl Hct 26.4 L D (30.3-42.9) %
[2022-02-26] MEDS: LACTULOSE 20 GM/30 ML ORAL LIQD PO SCH (14:02)
[2022-02-26] MEDS ORDERED: MEASLES, MUMPS & RUBELLA 12,500 UNIT/0.5 ML VACCINE SUB-Q ONE (14:24)
[2022-02-26] MEDS: IBUPROFEN 800 MG TAB PO PRN (20:33)
[2022-02-27] MEDS: oxyCODONE /ACETAMINOPHEN 5-325MG TAB PO PRN ×3 (00:22→14:47)
[2022-02-27] MEDS: LACTULOSE 20 GM/30 ML ORAL LIQD PO SCH (03:06)
[2022-02-27] MEDS: IBUPROFEN 800 MG TAB PO PRN (03:10)
[2022-02-27] MEDS: FERROUS SULFATE 325 MG TAB PO SCH (09:26)
[2022-02-27 09:32] VITALS: BP 111/69
--- NOTE | 2022-02-27 14:40 | Progress Note ---
Assessment and Plan A: POD#2 s/p repeat section with bilateral tubal ligation Anemia, asymptomatic Obesity P: Routine postop care Discharge home Subjective - Subjective Date of service: 02/27/22 Principal diagnosis: s/p repeat at term Interval history: Pt without unusual complaints today. +flatus. + bowel movement. Voiding without difficulty. Decreasing lochia. Pt would like to go home today. Patient reports: appetite normal, voiding normally, pain well controlled, flatus, bowel movement, ambulating normally [place]: doing well Objective - Vital Signs Latest vital signs: Vital Signs Temp Pulse Resp BP BP Pulse Ox Pulse Ox 02/27/22 10:25 100 02/27/22 09:30 97.5 F L 68 18 111/69 98 02/27/22 09:26 16 02/27/22 04:10 98 02/27/22 03:10 18 98 02/27/22 00:30 98.4 F 75 16 115/69 02/27/22 00:22 18 99 02/26/22 21:30 98 02/26/22 20:54 98.0 F 71 18 117/75 96 02/26/22 20:33 99 02/26/22 19:30 98 02/26/22 15:50 98.5 F 71 20 104/65 97 Intake and Output 02/26/22 02/27/22 02/27/22 22:59 06:59 14:59 Intake Total 600 300 Balance 600 300 Intake: Oral 600 Intake, Free Water 300 Other: Total, Intake Amount 360 # Voids Void 1 1 - Exam Breasts: Present: deferred Abdomen: Present: soft (obese ) Uterus: Present: fundal height below umbilicus Extremities: Present: edema (trace) Incision: Present: intact (with steri strips )
--- NOTE | 2022-02-27 14:43 | Discharge Summary ---
Providers - Providers Date of Admission: 02/25/22 09:25 Date of discharge: 02/27/22 Attending physician: KEVIN FARIAS 02/25/22 17:03 Consult to Database Development Project Manager [CONS] Routine Reason For Exam: Primary care physician: KEVIN FARIAS Hospitalization Reason for admission: section Delivery: Procedure: section, bilateral tubal ligation, repeat low transverse Procedure details: Please see operative report Incision: intact Other procedures: none complications: none Discharge diagnosis: IUP at term delivered [place] baby: female Hospital course: Patient was admitted for repeat section and bilateral tubal ligation at term which she tolerated well. Her postoperative course was complicated by asymptomatic anemia. She met discharge criteria on postop day #2. She will follow-up in the office in [address] Baxter Condition at discharge: Stable Disposition: 01 HOME / SELF CARE / HOMELESS - Discharge Diagnoses (1) Anemia Status: Acute Qualifiers: Anemia type: unspecified type Qualified Code(s): D64.9 - Anemia, unspecified (2) Obesity (BMI 35.0-39.9 without comorbidity) Status: Acute (3) Previous delivery affecting Status: Acute (4) S/P section Status: Acute Plan - Discharge Medications Prescriptions: Ferrous Sulfate [Feosol 325 MG tab] 325 mg PO BID #60 tablet Ibuprofen [Motrin] 800 mg PO Q8HR PRN #30 tablet PRN Reason: Pain, Moderate (4-6) oxyCODONE /ACETAMINOPHEN [Percocet 5/325] 1 tab PO Q6HR PRN #30 tablet PRN Reason: Pain - Provider Discharge Summary Activity: routine, no sex for 6 weeks, no heavy lifting 4 weeks, no strenuous exercise Diet: routine Instructions: routine Additional instructions: [] Smoking cessation referral if applicable(refer to patient education folder for contact #) [] Refer to [facility] Booklet Call your doctor immediately for: * Fever > 100.5 * Heavy vaginal bleeding ( >1 pad per hour) * Severe persistent headache * Shortness of breath * Reddened, hot, painful area to leg or breast * Drainage or odor from incision. * Keep incision clean and dry at all times and follow doctor's instructions regarding bathing/showering - Follow up plan Follow up: DAVID BAXTER MD [Staff Physician] - 14 Days (Please call to schedule incision check)
== END 2022-02-27 17:34 | disposition home or self-care (01) | DRG 766 ==
LOC: APU 09:25 → OB 16:15
PROVIDERS: ADMIT Obstetrics & Gynecology; ATTEND Obstetrics & Gynecology
PROC: 10D00Z1 Extraction of Products of Conception, Low, Open Approach (ICD-10-PCS; principal; 2022-02-25)
PROC: 0UB70ZZ Excision of Bilateral Fallopian Tubes, Open Approach (ICD-10-PCS; 2022-02-25)
PROC: 3E0234Z Introduction of Serum, Toxoid and Vaccine into Muscle, Percutaneous Approach (ICD-10-PCS; 2022-02-26)
DX: O34.211 Maternal care for low transverse scar from previous cesarean delivery (principal); O77.0 Labor and delivery complicated by meconium in amniotic fluid; Z20.822 Contact with and (suspected) exposure to COVID-19; Z37.0 Single live birth; Z3A.39 39 weeks gestation of pregnancy; O99.62 Diseases of the digestive system complicating childbirth; K21.9 Gastro-esophageal reflux disease without esophagitis; O99.824 Streptococcus B carrier state complicating childbirth; H31.8 Other specified disorders of choroid; O99.214 Obesity complicating childbirth; O90.81 Anemia of the puerperium; Z23 Encounter for immunization; Z88.6 Allergy status to analgesic agent
CPT/HCPCS: 36415; 85014; 85018; 85025; 86850; 86900; 86901; 88302; G0378; J0690; J1170; J1885; J7120; U0003